=== PATIENT | female | born 1945 | race Caucasian/White ===

== ENCOUNTER 2019-01-14 23:42 | Emergency (ER) | payer MEDICARE, OTHER ==
[~2019-01-14] VITALS: Ht 154.9 cm; Wt 68.9 kg
[2019-01-14 23:48] VITALS: BP 166/89
[2019-01-14] MEDS ORDERED: ALBUTEROL 0.083% 2.5 MG/3 ML NEBU INH ONE (23:55)
[2019-01-14] MEDS ORDERED: predniSONE 20 MG TAB PO ONE (23:55)
[2019-01-14] MEDS ORDERED: ALBUTEROL SULFATE/IPRATROPIU 3 ML SOL IH ONE (23:55)
--- NOTE | 2019-01-14 23:58 | NUR ---
PT WAS WHEEL CHAIRED TO THE RESTROOM AND THEN TO CHAIR E
--- NOTE | 2019-01-15 | NUR ---
PT TAKEN TO RAD
--- NOTE | 2019-01-15 00:10 | NUR ---
PT RETURN FROM RAD TO BED 4
--- NOTE | 2019-01-15 00:25 | NUR ---
Respiratory Therapist at bedside for respiratory intervention.
--- NOTE | 2019-01-15 00:25 | NUR ---
PT C/O SOB X 1 DAY. PT STATES SHE FEELS DIZZY. PT WAS SEEN AT THE DR. THIS MORNING AND WAS DIAGNOSED WITH BRONCHITIS AND WAS GIVEN A BREATHING TREATMENT. AUDITORY AND BILATERAL WHEEZING IN LUNGS. AAO.
--- NOTE | 2019-01-15 01:44 | NUR ---
PATIENT STATES SHE IS STILL FEELING TIGHT IN HER CHEST. DR. FERNANDEZ MADE AWARE
[2019-01-15] MEDS ORDERED: ALBUTEROL 0.083% 2.5 MG/3 ML NEBU INH ONE (01:45)
[2019-01-15] MEDS ORDERED: ALBUTEROL SULFATE/IPRATROPIU 3 ML SOL IH ONE (01:45)
--- NOTE | 2019-01-15 01:49 | NUR ---
Respiratory Therapist at bedside for respiratory intervention.
[2019-01-15 02:55] VITALS: BP 158/85
--- NOTE | 2019-01-15 02:56 | NUR ---
Patient discharged with v/s stable. Written and verbal after care instructions given and explained. Patient alert, oriented and verbalized understanding of instructions. Ambulatory with steady gait. All questions addressed prior to discharge. ID band removed. Patient advised to follow up with PMD. Rx of motrin, prednisone, albuterol given. Patient educated on indication of medication including possible reaction and side effects. Opportunity to ask questions provided and answered.
== END 2019-01-15 02:55 | disposition home or self-care (01) ==
LOC: MED 23:42
DX: R05 Cough (principal); R06.02 Shortness of breath; R07.89 Other chest pain
CPT/HCPCS: 71045; 94640; 99284; J7512; J7613; J7620

== ENCOUNTER 2019-11-13 19:45 | Emergency (ER) | payer MEDICARE, OTHER ==
[~2019-11-13] VITALS: Ht 157.5 cm; Wt 72.6 kg
[2019-11-13 20:02] VITALS: BP 181/90
[2019-11-13] MEDS ORDERED: NITROGLYCERIN 0.4 MG TAB SL ONE (20:10)
[2019-11-13] MEDS ORDERED: ASPIRIN 325 MG TAB PO ONE (20:10)
[2019-11-13] MEDS ORDERED: IPRATROPIUM 0.02% 0.5 MG/2.5 ML NEBU INH ONE (20:35)
[2019-11-13 20:37] LABS: BASOPHILS # (AUTO) 0.1 K/uL (0.00-0.22); BASOPHILS % (AUTO) 0.8 % (0.0-2.0); EOSINOPHILS # (AUTO) 0.1 K/uL (0-0.4); EOSINOPHILS % (AUTO) 1.5 % (0.0-4.0); HEMATOCRIT 40.8 % (36-48); HEMOGLOBIN 13.7 g/dL (12.0-16.0); LYMPHOCYTES # (AUTO) 0.5 K/uL (2.5-16.5); LYMPHOCYTES % (AUTO) 6.8 % (20.5-51.1); MEAN CORPUSCULAR HEMOGLOBIN 31 pg (27-31); MEAN CORPUSCULAR HGB CONC 34 g/dL (33-37); MEAN CORPUSCULAR VOLUME 93.7 fL (80-94); MONOCYTES # (AUTO) 0.6 K/uL (0.8-1.0); NEUTROPHILS # (AUTO) 6.3 K/uL (1.8-7.7); NEUTROPHILS % (AUTO) 82.9 % (42.2-75.2); PLATELET COUNT (AUTO) 162 K/uL (140-450); RED BLOOD CELL COUNT(AUTO) 4.35 MIL/uL (4.20-5.40); RED CELL DISTRIBUTION WIDTH 13.9 % (11.6-13.7); WHITE BLOOD COUNT (AUTO) 7.6 K/uL (4.8-10.8)
[2019-11-13 20:44] LABS: ALBUMIN 3.8 g/dL (3.4-5.0); ANION GAP 12.9 (8-16); ASPARTATE AMINOTRANSFERASE 15 U/L (15-37); CARBON DIOXIDE 29.5 mmol/L (21-32); CHLORIDE 104 mmol/L (98-107); CREATININE 1.2 mg/dL (0.6-1.3); GLUCOSE 190 mg/dL (74-106); POTASSIUM 4.4 mmol/L (3.5-5.1); SODIUM SERUM 142 mmol/L (136-145); TOTAL BILIRUBIN 0.2 mg/dL (0.0-1.0); UREA NITROGEN, BLOOD 25 mg/dL (7-18)
[2019-11-13] MEDS ORDERED: ALBUTEROL 0.083% 2.5 MG/3 ML NEBU INH ONE ×2 (20:45)
[2019-11-13] MEDS ORDERED: predniSONE 20 MG TAB PO ONE (20:45)
[2019-11-13 20:51] LABS: PROTHROMBIN TIME 9.7 secs (10.8-13.4)
[2019-11-13 22:22] VITALS: BP 125/78
== END 2019-11-13 22:23 | disposition home or self-care (01) ==
LOC: MED 19:45
DX: J45.901 Unspecified asthma with (acute) exacerbation (principal); R07.2 Precordial pain
CPT/HCPCS: 36415; 71045; 80053; 83880; 84484; 85025; 85610; 85730; 93005; 94640; 99285; J7512; J7613; J7644

== ENCOUNTER 2023-09-02 08:55 | Emergency (ER) | payer OTHER ==
[~2023-09-02] VITALS: Ht 160 cm; Wt 59.0 kg
[2023-09-02 09:12] VITALS: BP 150/69; PULSE 83; RESP 18; TEMP 98; O2SAT 96
[2023-09-02] MEDS ORDERED: guaiFENesin 20 MG/ML UDC PO ONE (09:40)
[2023-09-02] MEDS ORDERED: ALBU0.0912 INH (10:33)
[2023-09-02] MEDS ORDERED: PROM118S5 PO (10:33)
[2023-09-02] MEDS ORDERED: BENZ100C6 PO (10:33)
[2023-09-02] MEDS ORDERED: MUC600 PO (10:33)
[2023-09-02] MEDS ORDERED: PRED20TA5 PO (10:33)
[2023-09-02 10:34] LABS: FLU A ANTIGEN negative (NEGATIVE); FLU B ANTIGEN NEGATIVE (NEGATIVE); RSV NEGATIVE (NEGATIVE)
[2023-09-02 10:48] VITALS: BP 150/69; PULSE 83; RESP 18; TEMP 98; O2SAT 96
== END 2023-09-02 10:48 | disposition home or self-care (01) ==
LOC: MED 08:55
DX: J20.9 Acute bronchitis, unspecified (principal); Z20.822 Contact with and (suspected) exposure to COVID-19; J45.909 Unspecified asthma, uncomplicated; I10 Essential (primary) hypertension; Z79.899 Other long term (current) drug therapy
CPT/HCPCS: 71046; 87420; 99284

== ENCOUNTER 2023-09-05 21:52 | Emergency (ER) | payer OTHER ==
[~2023-09-05] VITALS: Ht 160 cm; Wt 68.0 kg
[~2023-09-05 21:52] MED LIST: ALBU0.0912 INH; BENZ100C6 PO; MUC600 PO; PRED20TA5 PO; PROM118S5 PO
[2023-09-05 22:20] VITALS: BP 142/78; PULSE 90; RESP 18; TEMP 98.2; O2SAT 97
[2023-09-06 03:00] VITALS: BP 142/78; PULSE 90; RESP 18; TEMP 98.2; O2SAT 97
== END 2023-09-06 00:01 | disposition left against medical advice (07) ==
LOC: MED 21:52
DX: R06.02 Shortness of breath (principal); R05.9 Cough, unspecified; Z53.21 Procedure and treatment not carried out due to patient leaving prior to being seen by health care provider
CPT/HCPCS: 99281